=== PATIENT | female | born 1935 | race Caucasian/White ===

== ENCOUNTER 2016-10-20 10:25 | Day surgery (SDCO) | payer MEDICARE ==
[~2016-10-20] VITALS: Ht 170.2 cm; Wt 77.2 kg
[2016-10-20 11:31] LABS: BASOPHIL 0.4 % (0-2); EOSINOPHIL 2.5 % (0-7); HCT 38.5 % (37.0-47.0); HGB 12.9 g/dl (12.5-16.0); LYMPHOCYTE 24.7 % (15-48); MCH 30.1 pg (25.0-31.0); MCHC 33.5 g/dL (32.0-36.0); MCV 89.7 fL (78.0-100.0); MONOCYTE 7.9 % (0-12); MPV 9.6 fL (6.0-9.5); NEUTROPHIL 64.5 % (41-80); PLT 254 K/uL (150-400); RBC 4.29 M/uL (4.20-5.40); WBC 7.7 K/uL (4.0-10.5)
[2016-10-20 11:32] LABS: INR 0.97 (0.9-1.2); PROTHROMBIN TIME 12.5 SECONDS (11.7-14.0)
[2016-10-20 11:39] LABS: ALBUMIN 4.3 g/dL (3.4-4.8); BILIRUBIN - TOTAL 0.4 mg/dL (0.1-1.0); GLOBULIN (CALCULATION) 2.9 g/dL (2.2-4.2); POTASSIUM 4.2 mmol/L (3.5-5.1); TOTAL PROTEIN 7.2 g/dL (6.4-8.3)
[2016-10-22 06:28] LABS: HCT 37.4 % (37.0-47.0); HGB 12.4 g/dl (12.5-16.0); MCH 29.7 pg (25.0-31.0); MCHC 33.2 g/dL (32.0-36.0); MCV 89.5 fL (78.0-100.0); MPV 9.3 fL (6.0-9.5); RBC 4.18 M/uL (4.20-5.40); RDW 14.1 % (11.5-14.0); WBC 5.6 K/uL (4.0-10.5)
[2016-10-22 06:47] LABS: CREATININE 0.8 mg/dL (0.5-1.0); POTASSIUM 4.3 mmol/L (3.5-5.1)
[2016-10-22] MEDS ORDERED: CRESTOR10 MG PO (10:52)
[2016-10-22] MEDS ORDERED: ASPIRIN CHEWABL81 MG PO (10:52)
[2016-10-22] MEDS ORDERED: COREG 6.25MG6.25 MG PO (10:52)
[2016-10-22] MEDS ORDERED: SYNTHROID100 MCG PO (10:52)
[2016-10-22] MEDS ORDERED: REMERON15 MG PO (10:53)
[2016-10-22] MEDS ORDERED: ARICEPT 5MG TABL5 MG PO (10:53)
== END 2016-10-22 11:20 | disposition home or self-care (01) ==
LOC: FER 10:25 → FTCU 12:05
PROVIDERS: Emergency Medicine; ADMIT Internal Medicine
DX: R55 Syncope and collapse (principal); I25.10 Atherosclerotic heart disease of native coronary artery without angina pectoris; I48.2 Chronic atrial fibrillation; Z79.82 Long term (current) use of aspirin; F03.90 Unspecified dementia, unspecified severity, without behavioral disturbance, psychotic disturbance, mood disturbance, and anxiety; E78.5 Hyperlipidemia, unspecified; Z90.710 Acquired absence of both cervix and uterus; Z90.89 Acquired absence of other organs
CPT/HCPCS: 36415; 70450; 70553; 71010; 80048; 80053; 84443; 84484; 85025; 85610; 93005; 93880; A9579; G0378; J1644

== ENCOUNTER 2021-10-28 12:57 | Emergency (ER) | payer MEDICARE ==
[~2021-10-28 12:57] MED LIST: ARICEPT 5MG TABL5 MG PO; ASPIRIN CHEWABL81 MG PO; COREG 6.25MG6.25 MG PO; CRESTOR10 MG PO; PROAMATINE5 MG PO; REMERON15 MG PO; SYNTHROID100 MCG PO; VITAMIN D2400 UNIT PO
[2021-10-28 14:11] LABS: BASOPHIL 0.9 % (0-2); EOSINOPHIL 2.4 % (0-7); LYMPHOCYTE 34.5 % (15-48); MCHC 33.3 g/dL (32.0-36.0); MCV 93.1 fL (78.0-100.0); MONOCYTE 8.7 % (0-12); MPV 9.9 fL (6.0-9.5); NEUTROPHIL 53.4 % (41-80); NRBC 0; PLT 250 K/uL (150-400); RBC 4.19 M/uL (4.20-5.40); RDW 13.1 % (11.5-14.0)
[2021-10-28 14:14] LABS: ALBUMIN 3.6 g/dL (3.4-5.0); BILIRUBIN - TOTAL 0.3 mg/dL (0.2-1.0); BUN/CREAT RATIO (CALC) 14.8 RATIO; CREATININE 1.08 mg/dL (0.51-0.95); GLOBULIN (CALCULATION) 3.5 g/dL; POTASSIUM 4.6 mmol/L (3.5-5.1); TOTAL PROTEIN 7.1 g/dL (6.4-8.2)
[2021-10-28 14:45] LABS: BILIRUBIN NEGATIVE (NEGATIVE); BLOOD NEGATIVE Ery/uL (NEGATIVE); CLARITY CLEAR (CLEAR); COLOR YELLOW (YELLOW); GLUCOSE (U) NORMAL (NORMAL); LEUKOCYTES 1+ Leu/uL (NEGATIVE); NITRITE NEGATIVE (NEGATIVE); PROTEIN NEGATIVE (NEGATIVE); SPECIFIC GRAVITY 1.015 (1.001-1.030); UROBILINOGEN 0.2 mg/dL (0.2-1.0); pH 6.5 (5.0-9.0)
[2021-10-28 14:52] LABS: BACTERIA TRACE
[2021-10-28] MEDS ORDERED: MACROBID100 MG PO (15:08)
== END 2021-10-28 15:20 | disposition home or self-care (01) ==
LOC: FER 12:57
PROVIDERS: Emergency Medicine
DX: N39.0 Urinary tract infection, site not specified (principal); F01.50 Vascular dementia, unspecified severity, without behavioral disturbance, psychotic disturbance, mood disturbance, and anxiety; I10 Essential (primary) hypertension
CPT/HCPCS: 36415; 70450; 80053; 81001; 84443; 85025; 93005